=== PATIENT | male | born 1975 | race Hispanic/Latino ===

== ENCOUNTER 2018-05-31 18:22 | Emergency (ER) | payer BC ==
[~2018-05-31] VITALS: Ht 172.7 cm; Wt 100.1 kg
[2018-05-31 19:14] LABS: CHLORIDE 106 mEq/L (99-109); HEMATOCRIT 43.5 % (38.0-50.0); MCH 30.3 PG (29.0-34.0); MCHC 34.5 G/DL (30.0-36.0); MCV 87.9 FL (86-99); POTASSIUM 4.2 mEq/L (3.7-5.4); RBC DIS.WIDTH-CV 12.9 % (11.8-14.6); RBC DIS.WIDTH-SD 41.2 % (39-53); RED BLOOD COUNT 4.95 M/uL (4.00-5.50); SODIUM 140 mEq/L (136-147); WHITE BLOOD COUNT 9.9 K/uL (4.1-10.2)
[2018-05-31 19:15] LABS: GLUCOSE 96 mg/dL (70-99)
[2018-05-31 19:19] LABS: CREATININE 1.2 mg/dL (0.6-1.3)
[2018-05-31 19:20] LABS: UREA NITROGEN (BUN) 19 mg/dL (9-23)
[2018-05-31 19:26] LABS: GFR ESTIMATE (CALCULATED) > 59 mL/min/ (58.99-99999); TROP-I INTERPRETATION NEGATIVE; TROPONIN-I < 0.01 ng/mL (0.0-0.30)
[2018-05-31 19:57] LABS: PLAT.SUFFICIENCY ADEQUATE; PLATELET COUNT UNABLE TO REPORT K/uL (156-360)
[2018-05-31 22:31] LABS: TROP-I INTERPRETATION NEGATIVE; TROPONIN-I 0.01 ng/mL (0.0-0.30)
[2018-05-31 23:04] VITALS: BP 128/89
== END 2018-05-31 23:04 | disposition home or self-care (01) ==
LOC: EME 18:22
PROVIDERS: Physician Assistant
DX: R07.9 Chest pain, unspecified (principal); E78.5 Hyperlipidemia, unspecified; Z82.49 Family history of ischemic heart disease and other diseases of the circulatory system
CPT/HCPCS: 71046; 80048; 84484; 85027; 93005; 99281; 99284